=== PATIENT | male | born 1950 | race Caucasian/White ===

== ENCOUNTER → 2023-05-07 | Day surgery (SDC) | payer MEDICARE, BC ==
[~2023-05-07] MED LIST: Ketamine 200 MG/20 ML MDV ONE; Lactated Ringers 1,000 ML IV SCH; Propofol 200 MG/20 ML SDV ONE; fentaNYL 50 MCG/ML SDV ONE
== END ==
LOC: CC.SDS 07:59
PROVIDERS: ATTEND Family Medicine
DX: D12.8 Benign neoplasm of rectum (principal); D12.2 Benign neoplasm of ascending colon; D17.79 Benign lipomatous neoplasm of other sites; E78.5 Hyperlipidemia, unspecified; F32.A Depression, unspecified; N40.1 Benign prostatic hyperplasia with lower urinary tract symptoms; R35.1 Nocturia; Z79.899 Other long term (current) drug therapy
CPT/HCPCS: 00811; 88305; 99100; J2704; J3010; J3490; J7120

== ENCOUNTER 2023-12-24 11:06 | Day surgery (SDC) | payer MEDICARE, BC ==
[2023-12-24] MEDS: Lactated Ringers 1,000 ML IV SCH (11:17)
== END 2023-12-24 13:25 | disposition home or self-care (01) ==
LOC: CC.SDS 11:06
PROVIDERS: ATTEND Family Medicine
DX: K64.8 Other hemorrhoids (principal); N40.0 Benign prostatic hyperplasia without lower urinary tract symptoms; F32.A Depression, unspecified; E78.5 Hyperlipidemia, unspecified; Z79.82 Long term (current) use of aspirin; Z79.899 Other long term (current) drug therapy
CPT/HCPCS: 00811; 45330; 99100; J7120